=== PATIENT | female | born 1995 | race African-American/Black ===

== ENCOUNTER 2020-10-28 10:51 | Emergency (ER) | payer BC ==
[~2020-10-28] VITALS: Ht 157.5 cm; Wt 72.5 kg
[2020-10-28 14:55] VITALS: BP 113/65
[2020-10-28] MEDS ORDERED: CLINDAMYCIN HCL 150 MG CAPSULE. PO ONE (15:15)
[2020-10-28] MEDS ORDERED: LIDOCAINE 2%/EPI 1:100,000 20 ML VIAL. INJ ONE (15:15)
[2020-10-28] MEDS ORDERED: CLIN300C9 PO (17:46)
--- NOTE | 2020-10-28 17:46 | PHYS DOC ---
Past Medical History Past Medical History: No Pertinent History Past Surgical History: No Surgical History Smoking Status: Never Smoker Alcohol Use: Occasionally Drug Use: None General Adult EDM: Chief Complaint: LOWER BACK PAIN OR INJURY HPI: HPI: Patient is a 25 year old female presents with several week history of progressive pain to upper buttocks/sacrum. Reports has problems sitting down without pain over the last few days. Patient reports history of mechanical trip and fall onto buttocks on a wet floor while at work approximately 3 months.ago. Patient has been following with workman's compensation at [facility]. Reports has been taking Naproxen and Flexeril without improvement. Denies . Denies additional injury. Denies dysuria or hematuria. Review of Systems: Review of Systems: Constitutional: Denies fever or chills Eyes: Denies change in visual acuity, redness, or eye pain HENT: Denies nasal congestion or sore throat Respiratory: Denies cough or shortness of breath Cardiovascular: Denies chest pain or palpitations GI: Denies abdominal pain, nausea, vomiting, or diarrhea : Denies dysuria or hematuria Musculoskeletal: Reports buttocks pain and swelling Integument: Denies rash Neurologic: Denies headache, focal weakness or sensory changes; denies loss of bowel/bladder Complete systems were reviewed and found to be within normal limits, except as documented in this note. Heart Score: C/O Chest Pain: N/A Current Medications: Current Medications Medications (Trade) Dose Ordered Sig/[facility] Start Time Stop Time Status Last Admin Dose Admin Clindamycin HCl (Cleocin) 300 mg 1X ONCE 10/28/20 15:15 10/28/20 15:37 DC 10/28/20 16:00 300 MG Ketorolac Tromethamine (Toradol 30mg Vial) 30 mg 1X ONCE 10/28/20 17:45 10/28/20 17:46 UNV Lidocaine/ Epinephrine (LIDOCAINE 2%-EPI 1:100,000 multi-dose) 20 ml 1X ONCE 10/28/20 15:15 10/28/20 15:37 DC 10/28/20 16:01 20 ML Allergies: Allergies: Allergies Coded Allergies Type Severity Reaction Last Updated Verified No Known Drug Allergies 10/28/20 No Physical Exam: PE: Constitutional: Well developed, well nourished, appears uncomfortable, non-toxic HENT: Normocephalic, atraumatic Eyes: Conjunctiva normal, no discharge Neck: Normal range of motion, supple Lungs & Thorax: Equal chest rise and fall, no respiratory distress Abdomen: Soft, no tenderness Skin: Warm, dry, swollen/erythematous area to sacral area as below Back: No midline tenderness, no CVA tenderness, tenderness to top of midline gluteal cleft with area swelling/fluctuance and mild erythema Extremities: No tenderness, ROM intact, no edema Neurologic: Alert and oriented X 3, no focal deficits noted Psychologic: Affect normal, judgement normal Current Patient Data: Vital Signs: Vital Signs Date Time Temp Pulse Resp B/P (MAP) Pulse Ox O2 Delivery O2 Flow Rate FiO2 10/28/20 14:55 98.6 57 16 113/65 97 Room Air 98.6 EKG: EKG: [] Radiology/Procedures: Radiology/Procedures: [] Course & Med Decision Making: Course & Med Decision Making Patient presents with HPI and physical exam consistent for pilonidal cyst. Signs of irritation/infection noted. Empiric antibiotic initiated. I&D performed with successful drainage of purulent material. Wound packed and dress ed. Patient stable for discharge home with outpatient follow-up with PCP and general surgeon for definitive treatment. Discussed findings and plan with patient, who acknowledges understanding and agreement. Namrata Disclaimer: Namrata Disclaimer: This electronic medical record was generated, in whole or in part, using a voice recognition dictation system. Incision and Drainage Incision and Drainage : Site: Upper midline gluteal cleft Blade Size: 11 I & D Procedure: sterile dressing applied, gauze wick placed (Iodoform gauze 1/2") Progress Verbal consent obtained. Time out completed. Hand hygiene utilized. Area cleaned with ChloraPrep. Localized anesthesia obtained via 25 gauge hypodermic needle and infiltration of 10mls of Lidocaine 2% with epi. Central area of fluctuance incised with 11 blade scalpel. Purulent material expressed from lesion. A curved Rona clamp utilized to break down any adhesions. Wound copiously irrigated Wound packed with 1/2" Iodoform gauze and sterile dressing applied. Patient tolerated procedure well and without difficulty. Departure Departure Impression: Primary Impression: Pilonidal cyst with abscess Disposition: HOME / SELF CARE / HOMELESS Condition: STABLE Referrals: HILDA RUIZ DO (PCP) Patient Instructions: Pilonidal Cyst, Care After Additional Instructions: Remove packing after 24 hours. Then immediately shower. Never soak your wound (ie bathtub, lakes, pools) until wound has healed. You may shower. Clean wound daily with soap and water. Change dressing 2 times daily. After packing has been removed use over the counter antibiotic ointment with each dressing change. Use [id number] Tylenol and/or ibuprofen for pain or discomfort. Scripts Clindamycin Hcl (CLINDAMYCIN HCL) 300 Mg Capsule 1 CAP PO TID for Infection for 7 Days, #21 CAP Prov: POLLY BARTON DO 10/28/20 POLLY BARTON DO Oct 28, 2020 17:46
[2020-10-28] MEDS ORDERED: KETOROLAC 30 MG/ML VIAL. IM ONE (18:00)
== END 2020-10-28 18:21 | disposition home or self-care (01) ==
LOC: ER 10:51
DX: L05.01 Pilonidal cyst with abscess (principal)
CPT/HCPCS: 10080; 96372; 99283; J1885; J3490